=== PATIENT | female | born 1985 | race Caucasian/White ===

== ENCOUNTER 2018-12-02 13:34 | Emergency (ER) | payer OTHER ==
[~2018-12-02] VITALS: Ht 160 cm; Wt 76.8 kg
[~2018-12-02 13:34] MED LIST: IBUP100S44 PO; MAPA500T17 PO
[2018-12-02] MEDS ORDERED: ROBI30SU PO (13:39)
[2018-12-02] MEDS ORDERED: ONDA8TAB7 PO (13:39)
[2018-12-02] MEDS ORDERED: ACETAMINOPHEN 325 MG TAB PO ONE (14:00)
[2018-12-02] MEDS ORDERED: VALT1TAB PO (14:14)
[2018-12-02] MEDS ORDERED: valACYclovir HCL 500 MG TAB PO ONE (14:15)
[2018-12-02 14:42] LABS: INFLUENZA A AMPLIFICATION POSITIVE (NEGATIVE); INFLUENZA B AMPLIFICATION NEGATIVE (NEGATIVE)
[2018-12-02] MEDS ORDERED: OSEL75CA PO (14:52)
[2018-12-02 14:56] VITALS: BP 106/65
[2018-12-02] MEDS ORDERED: OSELTAMIVIR PHOSPHATE 75 MG CAP (TAMIFLU) PO ONE (15:00)
== END 2018-12-02 15:08 | disposition home or self-care (01) ==
LOC: M ED 13:34
DX: O98.512 Other viral diseases complicating pregnancy, second trimester (principal); Z3A.16 16 weeks gestation of pregnancy; Z79.899 Other long term (current) drug therapy; Z88.5 Allergy status to narcotic agent; Z88.4 Allergy status to anesthetic agent

== ENCOUNTER 2019-04-14 18:29 | Outpatient (CLI) | payer OTHER ==
[~2019-04-14] VITALS: Ht 160 cm; Wt 98.3 kg
[~2019-04-14 18:29] MED LIST changes: +ONDA8TAB7 PO; +OSEL75CA PO; +ROBI30SU PO; +VALT1TAB PO
[2019-04-14 18:58] LABS: HEMATOCRIT 34.3 % (36.0-47.0); HEMOGLOBIN 11.3 g/dl (12.0-15.5); MEAN CORPUSCULAR HEMOGLOBIN 30.6 pg (27.0-33.0); MEAN CORPUSCULAR HGB CONC 32.9 g/dl (32.0-36.5); PLATELET COUNT, AUTOMATED 228 10^3/uL (150-450); RED BLOOD COUNT 3.69 10^6/uL (4.00-5.40); WHITE BLOOD COUNT 13.8 10^3/uL (4.0-10.0)
[2019-04-14 19:01] VITALS: BP 125/72
[2019-04-14 19:17] LABS: APPEARANCE, URINE CLEAR (CLEAR); BACTERIA, URINE AUTO 1+ (NEGATIVE); BILIRUBIN, URINE AUTO NEGATIVE (NEGATIVE); BLOOD, URINE BLOOD NEGATIVE (NEGATIVE); COLOR, URINE STRAW (YELLOW); GLUCOSE, URINE (UA) AUTO NEGATIVE (NEGATIVE); KETONE, URINE AUTO NEGATIVE (NEGATIVE); LEUKOCYTE ESTERASE, URINE AUTO TRACE (NEGATIVE); MUCUS, URINE SMALL (NEGATIVE); NITRITE, URINE AUTO NEGATIVE (NEGATIVE); PROTEIN, URINE AUTO NEGATIVE (NEGATIVE); RBC, URINE AUTO 2 /HPF (0-3); SPECIFIC GRAVITY URINE AUTO 1.003 (1.002-1.035); SQUAMOUS EPITHELIAL CELL UR AU 1 /HPF (0-6); UROBILINOGEN, URINE AUTO 0.2 mg/dL (0.0-2.0); WBC, URINE AUTO 1 /HPF (0-3)
--- NOTE | 2019-04-14 19:19 | IPNPDOC ---
Text Note Date of Service The patient was seen on 04/14/19. NOTE 34yo at 35w2d by LMP c/w first trimester US presents c/o leg and arm swe lling. She had pre-eclampsia with her first and is concerned she may be developing it again. She has had leg edema for several weeks, but today is the first time she has felt arm swelling. She was more active than usual today, out with the family and doing a lot of shopping. Has had on and off headaches for the last several weeks as well as occasional dizziness, she has neither today. Denies RUQ pain, vision changes, n/v, urinary/bowel symptom, denies ctx, vb, lof. +FM PMH/PSH: non-contrib OBHx: G1- at term, IOL for pre-e. G2- at term, no pre-e Meds: PNV, reglan ALL: oxycodone Vitals: reviewed, wnl. Gen WDWN, NAD. Resting comfortably in bed, denies pain Abd gravid, non-tender Ext no upper ext edema, +2 edema to knee bilaterally TAUS: SIUP, +FCA, +FM, MVP 6.8cm, posterior placenta, cephalic A/P: Likely normal gestational edema. Normotensive, CBC and CMP normal, and no symptoms of pre-e. UA with neg protein, however Pr:Cr=1. She does have baseline proteinuria with 24 hour urine protein 166mg. Will order repeat 24 hour urine for her to obtain and will call with results. Safe for discharge today. -24 hour urine protein -F/u at [facility] appointment on Tuesday -Strict return precautions discussed. She will present to L&D for any symptoms of pre-e. MD AREN Keating Fishbone, I+O [facility]SS[facility]ring I+O Laboratory Tests 04/14/19 18:49 Red Blood Count 3.69 L, Mean Corpuscular Volume 93.0, Mean Corpuscular Hemoglobin 30.6, Mean Corpuscular Hemoglobin Concent 32.9, Red Cell Distribution Width 14.5 Vital Signs Date Time Temp Pulse Resp B/P (MAP) Pulse Ox O2 Delivery O2 Flow Rate FiO2 04/14/19 19:01 99.3 98 18 125/72 (89) JEEVAN KEATING MD Apr 14, 2019 19:19
[2019-04-14 19:28] LABS: ALT/SGPT 15 U/L (12-78); BILIRUBIN,TOTAL 0.1 MG/DL (0.2-1.0); CREATININE FOR GFR 0.64 MG/DL (0.55-1.30); GLOMERULAR FILTRATION RATE > 60.0 (>60); LDH LACTATE DEHYDROGENASE 179 U/L (84-246); URIC ACID 2.8 MG/DL (2.6-6.0)
[2019-04-14 19:35] LABS: CREATININE,RANDOM URINE 13.4 MG/DL
== END 2019-04-14 19:45 | disposition home or self-care (01) ==
LOC: M LDO 18:29
PROVIDERS: ATTEND General Practice
DX: O26.893 Other specified pregnancy related conditions, third trimester (principal); R60.9 Edema, unspecified; Z3A.35 35 weeks gestation of pregnancy
CPT/HCPCS: 36415; 59025; 76815; 81001; 82247; 82565; 82570; 83615; 84156; 84450; 84460; 84550; 85027; G0378; G0463

== ENCOUNTER 2019-04-20 14:08 | Outpatient (CLI) | payer OTHER ==
[~2019-04-20] VITALS: Ht 160 cm; Wt 98.8 kg
[2019-04-20 15:39] LABS: HEMATOCRIT 30.1 % (36.0-47.0); MEAN CORPUSCULAR HGB CONC 33.2 g/dl (32.0-36.5); MEAN CORPUSCULAR VOLUME 90.4 fl (80.0-96.0); PLATELET COUNT, AUTOMATED 200 10^3/uL (150-450); RED BLOOD COUNT 3.33 10^6/uL (4.00-5.40); WHITE BLOOD COUNT 10.9 10^3/uL (4.0-10.0)
[2019-04-20 16:09] LABS: CREATININE,RANDOM URINE 95.1 MG/DL; TOTAL PROTEIN,RANDOM URINE 30.3 MG/DL (0.0-12.0)
[2019-04-20 16:11] LABS: ALT/SGPT 12 U/L (12-78); BILIRUBIN,TOTAL 0.2 MG/DL (0.2-1.0); CREATININE FOR GFR 0.62 MG/DL (0.55-1.30); GLOMERULAR FILTRATION RATE > 60.0 (>60); LDH LACTATE DEHYDROGENASE 176 U/L (84-246)
--- NOTE | 2019-04-20 17:46 | IPNPDOC ---
Obstetrical Progress Note Date of Service Apr 20, 2019 Subjective 34yo at 36+1wk presents to LND after she was contacted by clinic regarding 24hr protein lab result and told to come in for evaluation for Pre- Eclampsia. Pt reports +FM, denies LOF/VB. She states she feels intermittent contractions, mostly BH. She has c/o dizziness and right arm swelling with numbness. She denies feeling dizzy during my assessment. She denies LUCIO at this time and states, although she still has them, they are controlled. She denies visual changes. Pt also c/o loose/soft stools x3 days. She denies being febrile, denies stomach pain, nausea/vomiting. No other person in the home has been sick. Pt has previously been diagnosed with anemia; she denies taking iron supplements as previously recommended. Objective Vital Signs Date Time Temp Pulse Resp B/P (MAP) Pulse Ox O2 Delivery O2 Flow Rate FiO2 04/20/19 16:08 97.7 18 Room Air Assessment and Plan Additional Comments O: VSS, BP normotensive Pedal/BLE edema present, but no change from previous exam DTRs 2+ and WNL No visual edema of right arm; symmetrical with left arm Hydrometer Calibrator strength WNL FHR 130s, moderate variablity, + accels, no decels CTX present, mild by palpation, pt denies most of them 24hr urine from 90FLH10: 583.1 (baseline in 1st trimester: 166) PC ratio from 35EUC86: 1.04; today's result: 0.31 AST/ALT/Creatinine all WNL H/H: 10.0/30.1 Platelets: 200 A: 34yo at 36+1wks normotensive most Pre-E labs WNL; elevated PC ratio Anemic, possibly symptomatic with dizziness; no syncope Category I FHT P: Growth US scheduled for Tuesday, f/u [facility]B Tuesday, APFT starts Tuesday, start iron supplements reviewed strict Pre-E precautions return to LND if symptoms worsen CHARLES ESTEVEZ CNM Apr 20, 2019 17:46
== END 2019-04-20 16:35 | disposition home or self-care (01) ==
LOC: M LDO 14:08
PROVIDERS: ATTEND Registered Nurse Maternal Newborn
DX: Z36.89 Encounter for other specified antenatal screening (principal); O99.013 Anemia complicating pregnancy, third trimester; O99.89 Other specified diseases and conditions complicating pregnancy, childbirth and the puerperium; R60.9 Edema, unspecified; Z3A.36 36 weeks gestation of pregnancy
CPT/HCPCS: 36415; 59025; 82247; 82565; 82570; 83615; 84156; 84450; 84460; 84550; 85027; G0378; G0463

== ENCOUNTER 2019-04-24 21:53 | Outpatient (CLI) | payer OTHER ==
[~2019-04-24] VITALS: Ht 160 cm; Wt 101.6 kg
[2019-04-24 22:19] VITALS: BP 86/51
[2019-04-24] MEDS ORDERED: MULTCAP PO (22:26)
[2019-04-24] MEDS ORDERED: IRON65TA2 PO (22:26)
[2019-04-24] MEDS ORDERED: MAGN400C PO (22:26)
[2019-04-24 22:36] VITALS: BP 101/55
== END 2019-04-25 00:20 | disposition home or self-care (01) ==
LOC: M LDO 21:53
PROVIDERS: ATTEND Obstetrics & Gynecology
DX: O26.893 Other specified pregnancy related conditions, third trimester (principal); M54.5 Low back pain; O36.8130 Decreased fetal movements, third trimester, not applicable or unspecified; Z3A.36 36 weeks gestation of pregnancy
CPT/HCPCS: 59025; G0378; G0463

== ENCOUNTER 2019-05-11 16:49 | Inpatient (IN) | payer OTHER ==
[~2019-05-11] VITALS: Ht 160 cm; Wt 103.7 kg
[~2019-05-11 16:49] MED LIST changes: +IRON65TA2 PO; +MAGN400C PO; +MULTCAP PO
[2019-05-11 17:15] VITALS: BP 128/77
[2019-05-11] MEDS ORDERED: PENICILLIN G POTASSIUM IV 5 MU in D5W MINI-BAG PLUS 100 ML IV STA (18:17)
[2019-05-11 18:23] LABS: HEMATOCRIT 34.1 % (36.0-47.0); HEMOGLOBIN 11.1 g/dl (12.0-15.5); MEAN CORPUSCULAR HEMOGLOBIN 30.8 pg (27.0-33.0); MEAN CORPUSCULAR HGB CONC 32.6 g/dl (32.0-36.5); MEAN CORPUSCULAR VOLUME 94.7 fl (80.0-96.0); PLATELET COUNT, AUTOMATED 180 10^3/uL (150-450); WHITE BLOOD COUNT 9.2 10^3/uL (4.0-10.0)
[2019-05-11] MEDS ORDERED: miSOPROStol 50 MCG 1/2 TAB (S0191) PO ONE (18:30)
[2019-05-11 18:47] VITALS: BP 145/63
[2019-05-11 18:48] LABS: CREATININE,RANDOM URINE 61.3 MG/DL; TOTAL PROTEIN,RANDOM URINE 32.2 MG/DL (0.0-12.0)
[2019-05-11 18:52] LABS: ALBUMIN 2.2 GM/DL (3.2-5.2); ALT/SGPT 12 U/L (12-78); BILIRUBIN,TOTAL 0.3 MG/DL (0.2-1.0); BLOOD UREA NITROGEN 7 MG/DL (7-18); CALCIUM LEVEL 8.7 MG/DL (8.5-10.1); CARBON DIOXIDE LEVEL 25 MEQ/L (21-32); CHLORIDE LEVEL 107 MEQ/L (98-107); CREATININE FOR GFR 0.55 MG/DL (0.55-1.30); GLOMERULAR FILTRATION RATE > 60.0 (>60); GLUCOSE, FASTING 83 MG/DL (70-100); SODIUM LEVEL 141 MEQ/L (136-145); TOTAL PROTEIN 5.9 GM/DL (6.4-8.2)
[2019-05-11 19:45] VITALS: BP 108/68
[2019-05-11 21:04] VITALS: BP 123/62
[2019-05-11] MEDS ORDERED: zolPIDEM TARTRATE 5 MG TAB PO ONE (23:30)
[2019-05-11] MEDS: PENICILLIN G POTASSIUM IV 2.5 MU in APPROPRIATE DILUENT 1 EA IV SCH (23:40)
[2019-05-12] VITALS (48 sets, daily range): BP systolic 94–189; BP diastolic 53–143
[2019-05-12] MEDS: PENICILLIN G POTASSIUM IV 2.5 MU in APPROPRIATE DILUENT 1 EA IV SCH ×6 (04:10→23:55)
[2019-05-12] MEDS ORDERED: OXYTOCIN DRIP 30 UNITS in APPROPRIATE DILUENT 1 EA IV SCH (06:15)
[2019-05-12] MEDS: LR 1,000 ML IV SCH ×2 (07:52→23:56)
--- NOTE | 2019-05-12 09:14 | IPN ---
DATE: 05/11/2019 This lady is a 34 old 3, para 2 at 39 and 1 weeks of gestation who was admitted for induction of labor because of proteinuria. She had 1 lot of misoprostol and she was started on the penicillin prophylactically because she was GBS positive. Four hours later she was having what appeared to be tetanic type contractions and on examination of the cervix. She was 1-2 cm posterior and thick membranes were intact. Therefore we elected to not and in the Pitocin. We are anticipating giving her something to sleep but she is not able to cope with these contractions and reassess her and 3-4 hours time. She is antibiotic complete at the present time. Her strip is a category one strip at the present time. Her vital signs are 145/63, respirations are 18, pulse 91, temperature 99.4. Presently there are no issues. She is getting some relaxation in between these short contractions. Baby is tolerating them well. We will reassess as mentioned in four hours, safe to proceed.
--- NOTE | 2019-05-12 09:55 | IPNPDOC ---
Text Note Date of Service The patient was seen on 05/12/19. NOTE I accepted care of this patient on 12May2019 at 0830AM. OB Considerations: - New onset proteinuria - 583.1mg ([id number]) - H/O Pre-Eclampsia - GBS positive - No PCN allergy - Overweight - Anemia - current H/H - H/O Macrosomia - proven to 9lbs 9oz Alanna is a 34yo at 39+2wks by LMP c/w 8 wk US (MANUEL [id number]) admitted for IOL for new onset Proteinuria in the setting of normal blood pressures. She reports feeling well today. course complicated by the above. Medical and Surgical histories reviewed. She denies headaches, vision changes, RUQ pain. She denies painful contractions. Reports movement. labs notable for O positive/antibody negative, HIV/Hep B/RPR negative, Rubella and Varicella Immune, Pap/HPV WNL, Urine Culture mixed ozzie, GC Neg, Initial HCT 38.6, PLT 304, GTT WNL, Tdap received, GBS pos. Labor Course: Admit [id number] 1800 DCE 50/-3 [id number] 1846 Cytotec [id number] 1928 PCN start [id number] 0712 /-3 [id number] 0915 Pitocin Start PE: VS reviewed, normotensive, afebrile, nontachycardic GEN: WNWD, NAD ABD: Soft, Gravid, NT EXT: No Edema Vertex by Chano's FHT: 130bmp, mod variability, + accelerations, - decelerations [place]: irregular EFW: 4000gm A/P: SIUP at 39+2wks IOL for new onset Proteinuria, Cat I FHT. No s/sx of Pre Eclampsia. - VS per protocol - Continue IVF - Continue Pitocin and titrate per protocol - Continue PCN for GBS positive - Recheck 4 to 6 hrs after regular contractions, consider AROM at next check Natasha Moreau, DO VS,Fishbone, I+O VS, Fishbone, I+O Laboratory Tests 05/11/19 18:10 Red Blood Count 3.60 L, Mean Corpuscular Volume 94.7, Mean Corpuscular Hemoglobin 30.8, Mean Corpuscular Hemoglobin Concent 32.6, Red Cell Distribution Width 16.2 H, Calcium Level 8.7, Aspartate Amino Transf (AST/SGOT) 19, Alanine Aminotransferase (ALT/SGPT) 12, Alkaline Phosphatase 137 H, Total Bilirubin 0.3, Total Protein 5.9 L, Albumin 2.2 L Vital Signs Date Time Temp Pulse Resp B/P (MAP) Pulse Ox O2 Delivery O2 Flow Rate FiO2 05/12/19 07:18 97.4 95 18 110/66 (81) I&O- Last 24 Hours up to 6 AM 05/12/19 05:59 Intake Total 2880 ml Balance 2880 ml NATASHA MOREAU DO May 12, 2019 09:55
[2019-05-12] MEDS ORDERED: SLF 3 ML SYR IV PRN (11:45)
--- NOTE | 2019-05-12 14:09 | IPN ---
DATE: 05/12/2019 She is a 34-year-old, 3, para 2 who was admitted for induction of labor at 39 and 1 weeks' of gestation because of history of proteinuria. She had one lot of misoprostol. She had some tympanic type contractions with that and we elected to wait until it wore off, hydrated her, change position and elected to augment her with Pitocin. Overnight she slept well. She got intermittent contractions, they spaced out the regular 1-4 minutes with moderate intensity. She did sleep through them. On examination today she still 1 cm posterior high about 50% effaced, thinning out with these irritability contractions from the misoprostol. Our plan of management is to have her shower, eat and then we will start her on Pitocin and monitor contractions based on the Pitocin dosage. The patient expressed understanding of the plan of care. She has had a previous induction of labor for pre PE and she had induction of labor for post dates at 42 weeks of gestation. Both ended with a vaginal delivery and she has tested her pelvis to 9 pounds 9 ounces without shoulder dystocia. She is a Group B streptococcus (GBS) positive and she has received her second dose of antibiotic therapy.
--- NOTE | 2019-05-12 15:47 | IPNPDOC ---
Text Note Date of Service The patient was seen on 05/12/19. NOTE I accepted care of this patient on 12May2019 at 0830AM. OB Considerations: - New onset proteinuria - 583.1mg ([id number]) - H/O Pre-Eclampsia - GBS positive - No PCN allergy - Overweight - Anemia - current H/H - H/O Macrosomia - proven to 9lbs 9oz Alanna is a 34yo at 39+2wks by LMP c/w 8 wk US (MANUEL [id number]) admitted for IOL for new onset Proteinuria in the setting of normal blood pressures. She reports feeling well today. She reports feeling the contractions, but are not painful. VS: reviewed, normotensive, afebrile, nontachycardic GEN: WNWD, NAD ABD: Soft, Gravid, NT EXT: Trace Edema DCE: 3/50/-3, soft, anterior FHT: 120bpm, mod variability, + accelerations, - decelerations [place]: 2-5/min on 16mUnits of Pitocin A/P: IOL for new onset Proteinuria, no signs or symptoms of pre eclampsia. Cat I FHT. - Continue VS per protocol - Continue to monitor - Continue PCN for GBS positive - Continue Pitocin and Titrate per protocol - Recheck in 4 - 6 hrs or sooner if indicated, consider AROM at next check if station allows Natasha Moreau, DO VS,Fishbone, I+O VS, Fishbone, I+O Laboratory Tests 05/11/19 18:10 Red Blood Count 3.60 L, Mean Corpuscular Volume 94.7, Mean Corpuscular Hemoglobin 30.8, Mean Corpuscular Hemoglobin Concent 32.6, Red Cell Distribution Width 16.2 H, Calcium Level 8.7, Aspartate Amino Transf (AST/SGOT) 19, Alanine Aminotransferase (ALT/SGPT) 12, Alkaline Phosphatase 137 H, Total Bilirubin 0.3, Total Protein 5.9 L, Albumin 2.2 L Vital Signs Date Time Temp Pulse Resp B/P (MAP) Pulse Ox O2 Delivery O2 Flow Rate FiO2 05/12/19 07:18 97.4 95 18 110/66 (81) I&O- Last 24 Hours up to 6 AM 05/12/19 06:00 Intake Total 2880 ml Balance 2880 ml NATASHA MOREAU DO May 12, 2019 15:47
[2019-05-12] MEDS ORDERED: FENTANYL 2MCG/ML ROPIVACAINE 0.2% IN 0.9% NACL 100ML IVBAG As Ordered ONE (20:43)
[2019-05-12] MEDS ORDERED: LR 500 ML IV ONE (20:45)
[2019-05-12] MEDS ORDERED: FENTANYL/ROPIVACAINE/NACL BAG 100 ML EPIDURAL SCH (22:00)
[2019-05-12] MEDS ORDERED: EPIDURAL/PCA KEYS XX PRN (22:00)
[2019-05-12] MEDS ORDERED: REFRIGERATOR IV KEYS XX PRN (22:00)
[2019-05-12] MEDS ORDERED: EPIDURAL COMMENT XX SCH (22:00)
[2019-05-12] MEDS ORDERED: LACTATED RINGER'S 1000 ML IV PRN (22:00)
[2019-05-12] MEDS ORDERED: diphenhydrAMINE INJ 50MG/ML VIAL (J1200) IV PRN (22:00)
[2019-05-12] MEDS ORDERED: ONDANSETRON 4MG/2ML VIAL (J2405) IV PRN (22:00)
[2019-05-12] MEDS ORDERED: ePHEDrine SULFATE 25 MG/5 ML(5MG/ML) SYRINGE IV PRN (22:00)
[2019-05-12] MEDS ORDERED: NALOXONE INJ 0.4 MG/1 ML VIAL (J2310) IV PRN (22:00)
[2019-05-13] VITALS (9 sets, daily range): BP systolic 99–123; BP diastolic 56–70
--- NOTE | 2019-05-13 01:07 | DNPDOC ---
[facility] Delivery Note Delivery Note DATE OF DELIVERY: [13May2019] PREDELIVERY DIAGNOSIS: [39]-[3]/7 weeks' gestation and labor. POST DELIVERY DIAGNOSIS: Delivered. PROCEDURE: [Spontaneous vaginal delivery]. SALES ENABLEMENT SPECIALIST: Dr. Purvis] ANESTHESIA: [Epidural]. ESTIMATED BLOOD LOSS: [300] mL. FINDINGS: [3970] grams [male] , Score [8]/[9], no nuchal. DELIVERY SUMMARY: Patient is a [34]-year-old [3] now para [3]-[0]-[0]-[3] who was admitted to labor and delivery for induction of labor for new onset proteinuria. delivered OA, restituted SHY. No nuchal. Right anterior shoulder delivered with gentle downward traction and the rest of the body delivered spontaneously and placed on maternal abdomen. Infant cried spontaneously. The cord was doubly clamped, and cut by father of . Cord blood was collected per protocol. The placenta was delivered, scar, 3vc, intact, with gentle downward traction. Systematic inspection of the perineum was performed and a midline 1st degree vaginal laceration. Good epidural anesthesia was noted. 3-0 Vicryl and repaired in usual fashion. Good reapproximation was noted. Mother and baby stable and bonding when physician left the room. EBL 300cc Lap and Needle counts were correct x2. JYOTI MOREAU DO May 13, 2019 01:07
[2019-05-13] MEDS ORDERED: ACETAMINOPHEN TAB 650MG DOSE (2X325MG) PO PRN (01:15)
[2019-05-13] MEDS ORDERED: IBUPROFEN 600 MG TAB PO PRN (01:15)
[2019-05-13] MEDS ORDERED: ACETAMINOPHEN 500 MG TAB PO PRN (01:15)
[2019-05-13] MEDS ORDERED: METHYLERGONOVINE MALEATE 0.2 MG TAB PO PRN (01:15)
[2019-05-13] MEDS ORDERED: IBUPROFEN 800 MG TAB PO PRN (01:15)
[2019-05-13] MEDS ORDERED: DIBUCAINE 1% OINTMENT 30GM TOP PRN (01:15)
[2019-05-13] MEDS ORDERED: DOCUSATE SODIUM 100 MG CAP PO PRN (01:15)
[2019-05-13] MEDS ORDERED: MEASLES,MUMPS,RUBELLA VACCINE INJ (MMR-II) (90707) SC SCH (01:15)
[2019-05-13] MEDS ORDERED: RHOGAM 300 MCG (1500 IU) INJ (J2790) IM SCH (01:15)
[2019-05-13] MEDS: PRENATAL VITAMINS CHEWABLE TABLET PO SCH (08:32)
[2019-05-14 05:43] VITALS: BP 132/69
--- NOTE | 2019-05-14 06:21 | IPNPDOC ---
Progress Note Date of Service: May 14, 2019 Day#: 1 Progress Note SUBJECT: [Alanna] is a [34]-year-old [3] now Para [2]-[0]-[0]-[2] stat post uncomplicated spontaneous vaginal delivery at [39]-[2]/7 weeks' on [[id number]] of a [3970] grams with 1st degree midline vaginal laceration and repair, doing well day # [1]. She has been ambulating, voiding spontaneously without issue and tolerating regular diet. Breast feeding without issue. Reports lochia is [like a normal period]. Patient is ambulating well. [Reports some cramping with . Denies any pain. Voiding and stooling without difficulty]. OBJECTIVE: VITAL SIGNS: Within normal limits, afebrile. Alert and oriented times three. Breath sounds clear to auscultation. Heart rate: Regular rate and rhythm, no murmurs, rubs or gallops. Abdomen: Fundus firm at U-2. Soft, NTTP. [Minimal] lochia. ASSESSMENT: [Alanna] is a [34]-year-old [3] now Para [2]-[0]-[0]-[2] status post uncomplicated spontaneous vaginal delivery at [39]-[2]/7 weeks' on [[id number]] of a [3970] grams with 1st degree midline vaginal laceration and repair, doing well day # [1]. Vitals within normal limits, afebrile, hemodynamically stable with no evidence of infection. PLAN: 1. Discharge to home today. 2. Tylenol and Motrin for pain. 3. Encourage breast feeding and ambulation. 4. [Minipill] for contraception for now, desires BTL. 5. Routine PP visit in 6 weeks in clinic. 6. Discussed return precautions at length. VS, I&O, 24H, Fishbone Vital Signs/I&O Vital Signs Date Time Temp Pulse Resp B/P (MAP) Pulse Ox O2 Delivery O2 Flow Rate FiO2 05/14/19 05:43 97.4 90 18 132/69 (90) 05/13/19 18:00 97 JYOTI MOREAU DO May 14, 2019 06:20
[2019-05-14] MEDS ORDERED: MIRA3350 PO (06:59)
[2019-05-14] MEDS ORDERED: IBUP80TA PO (06:59)
[2019-05-14] MEDS ORDERED: APAP325T4 PO (06:59)
[2019-05-14] MEDS: PRENATAL VITAMINS CHEWABLE TABLET PO SCH (08:09)
== END 2019-05-14 14:20 | disposition home or self-care (01) | DRG 807 ==
LOC: M LDI 16:49 → M OBS 05-13 03:39 → M PED 05-13 20:00
PROVIDERS: ADMIT Advanced Practice Midwife; ATTEND Obstetrics & Gynecology
PROC: 3E0P7GC Introduction of Other Therapeutic Substance into Female Reproductive, Via Natural or Artificial Opening (ICD-10-PCS; 2019-05-11)
PROC: 10907ZC Drainage of Amniotic Fluid, Therapeutic from Products of Conception, Via Natural or Artificial Opening (ICD-10-PCS; 2019-05-12)
PROC: 10E0XZZ Delivery of Products of Conception, External Approach (ICD-10-PCS; principal; 2019-05-13)
PROC: 0HQ9XZZ Repair Perineum Skin, External Approach (ICD-10-PCS; 2019-05-13)
DX: O12.14 Gestational proteinuria, complicating childbirth (principal); Z37.0 Single live birth; Z3A.39 39 weeks gestation of pregnancy; O99.824 Streptococcus B carrier state complicating childbirth; O99.02 Anemia complicating childbirth; D64.9 Anemia, unspecified; O70.0 First degree perineal laceration during delivery

== ENCOUNTER 2019-08-01 06:07 | Day surgery (SDC) | payer OTHER ==
[~2019-08-01] VITALS: Ht 160 cm; Wt 88.5 kg
[~2019-08-01 06:07] MED LIST changes: +APAP325T4 PO; +IBUP80TA PO; +MIRA3350 PO
[2019-08-01 06:37] LABS: HEMATOCRIT 43.3 % (36.0-47.0); MEAN CORPUSCULAR HEMOGLOBIN 30.6 pg (27.0-33.0); MEAN CORPUSCULAR HGB CONC 32.3 g/dl (32.0-36.5); MEAN CORPUSCULAR VOLUME 94.7 fl (80.0-96.0); PLATELET COUNT, AUTOMATED 273 10^3/uL (150-450); RED BLOOD COUNT 4.57 10^6/uL (4.00-5.40)
[2019-08-01] MEDS ORDERED: DOXYCYCLINE HYCLATE 100 MG TAB PO ONE ×2 (07:00→08:45)
[2019-08-01] MEDS ORDERED: LR 1,000 ML IV ONE (07:00)
[2019-08-01] MEDS ORDERED: PROPOFOL 200 MG/20 ML VIAL As Ordered ONE ×3 (07:14→07:55)
[2019-08-01] MEDS ORDERED: MIDAZOLAM INJ 2 MG/2 ML VIAL (J2250) As Ordered ONE (07:14)
[2019-08-01] MEDS ORDERED: ONDANSETRON 4MG/2ML VIAL (J2405) As Ordered ONE (07:14)
[2019-08-01] MEDS ORDERED: fentaNYL 250 MCG/5 ML INJECTION (J3010) As Ordered ONE (07:14)
[2019-08-01] MEDS ORDERED: dexameTHASONE 4 MG/ML 1ML VIAL (J1100) As Ordered ONE (07:14)
[2019-08-01] MEDS ORDERED: KETOROLAC 60 MG/2 ML VIAL (J1885) As Ordered ONE ×2 (07:14→08:11)
[2019-08-01] MEDS ORDERED: BUPIVACAINE/EPIN 0.25% 30 ML VIAL As Ordered ONE (07:17)
[2019-08-01] MEDS ORDERED: ACETAMINOPHEN 1000MG 100ML IV BTL (OFIRMEV) (J0131 PER 10MG) As Ordered ONE (07:24)
[2019-08-01] MEDS ORDERED: ePHEDrine SULFATE 25 MG/5 ML(5MG/ML) SYRINGE As Ordered ONE (07:53)
[2019-08-01 09:00] VITALS: BP 112/73
--- NOTE | 2019-08-01 09:45 | POST-OPPD ---
Postoperative Procedure Note Date Of Procedure: Aug 01, 2019 PREOPERATIVE DIAGNOSIS: abnormal uterine bleeding POSTOPERATIVE DIAGNOSIS: same as above FINDINGS: Small amount of intrauterine tissue PROCEDURE: suction dilation and curettage SURGEON: Jean Galarza DO ELEVATOR CONSTRUCTOR: NONE ANESTHESIA: MAC SPECIMENS: intrauterine contents ESTIMATED BLOOD LOSS: 10cc REPLACED: 500cc LR DRAINS: 30cc COMPLICATIONS: none POSTOPERATIVE CONDITION: stable Detailed operative note: Patient is a 34 yo S/P 11 weeks with persistent vaginal bleeding. Pelvic US concerning for possible retained products. Trial of medication with cytotec was not successful. Description of procedure: The risks, benefits, indications and alternatives of the procedure were reviewed with the patient and informed consent was obtained. The patient was taken to the operating room with IV running. Patient under conscious sedation. Patient placed in lithotomy position. Patient vagina and perineum prepped and draped in the usual sterile fashion. Speculum placed vaginally and cervix visualized. The anterior of cervix grasp with single tooth tenaculum. Bilateral uterosacral injected with Marcaine 0.25% with epi for local block. Cervix dilated to 7mm. Sharp curette used and produced small amount of tissue. Curved suction curette (7mm) used with multiple passes until no additional tissue is retrieved. Medium sharp curette used until a gritty texture is felt on all four quadrants. Suction curette reintroduced to remove remainder of tissue. All instruments removed from the vagina. Sponge and instruments count correct x 2. Patient was taken out of OR in stable condition. JEAN GALARZA DO Aug 01, 2019 09:40
== END 2019-08-01 09:16 | disposition home or self-care (01) ==
LOC: M SDC 06:07
PROVIDERS: ATTEND Obstetrics & Gynecology
DX: O02.1 Missed abortion (principal); D64.9 Anemia, unspecified; Z88.5 Allergy status to narcotic agent; F41.9 Anxiety disorder, unspecified
CPT/HCPCS: 36415; 59820; 85027; 86850; 86900; 86901; 88305; J0131; J1885; J2250; J2405

== ENCOUNTER → 2019-10-07 | Outpatient (REF) | payer OTHER ==
[~2019-10-07] MED LIST changes: +ONDA8TAB10 PO; -ONDA8TAB7 PO
== END ==
LOC: M SFHCLERA 14:29
PROVIDERS: ATTEND Physician Assistant
DX: J02.9 Acute pharyngitis, unspecified (principal)

== ENCOUNTER → 2019-10-07 | Outpatient (CLI) | payer OTHER ==
--- NOTE | 2019-10-07 11:49 | REP ---
PA and lateral chest: There are no comparisons. The lung cline are clear. The cardiac size is normal. The eagle, mediastinum, and skeletal structures are unremarkable. Impression: Negative PA and lateral chest. Electronically Signed by El Lorenz MD 10/07/2019 11:41 A
== END ==
LOC: M LRY 11:25
PROVIDERS: ATTEND Physician Assistant
DX: R05 Cough (principal)
CPT/HCPCS: 71046; 87880; G0463

== ENCOUNTER → 2022-01-18 | Outpatient (REF) | payer OTHER ==
[~2022-01-18] MED LIST changes: +ONDA-84 PO; -ONDA8TAB10 PO
[2022-01-18 17:17] LABS: RSV AMPLIFICATION NEGATIVE (NEGATIVE)
== END ==
LOC: M LAB REF 15:34
PROVIDERS: ATTEND Physician Assistant
DX: R68.83 Chills (without fever) (principal)

== ENCOUNTER 2025-04-21 13:07 | Emergency (ER) | payer OTHER ==
[~2025-04-21] VITALS: Ht 167.6 cm; Wt 98.9 kg
[2025-04-21 14:06] LABS: BASO # 0.1 10^3/uL (0.0-0.2); BASO % 1.4 % (0.0-1.0); EOS # 0.2 10^3/uL (0.0-0.5); EOS % 2.2 % (0.0-3.0); LYMPH # 2.6 10^3/uL (1.5-5.0); LYMPH % 28.4 % (24.0-44.0); MONO # 0.7 10^3/uL (0.0-0.8); MONO % 7.8 % (2.0-8.0); NEUTROPHILS # 5.6 10^3/uL (1.5-8.5); NEUTROPHILS % 59.8 % (36.0-66.0); PLATELET COUNT, AUTOMATED 352 10^3/uL (150-450)
[2025-04-21 14:10] LABS: KETONE, URINE AUTO RFX NEGATIVE (NEGATIVE); LEUKOCYTE ESTERASE UR AUTO RFX NEGATIVE (NEGATIVE); NITRITE, URINE AUTO RFX NEGATIVE (NEGATIVE); RBC, URINE AUTO RFX TNTC /HPF (0-3); SQUAM EPITHELIAL CELL UR AURFX 7 /HPF (0-6)
[2025-04-21 14:11] LABS: WBC, URINE AUTO RFX 11 /HPF (0-3)
[2025-04-21 14:39] LABS: CALCIUM LEVEL 8.2 MG/DL (8.5-10.1); CARBON DIOXIDE LEVEL 28 MMOL/L (20-31); CHLORIDE LEVEL 104 MMOL/L (98-107); CREATININE FOR GFR 0.80 MG/DL (0.55-1.30); GLOMERULAR FILTRATION RATE > 90.0 (>60); POTASSIUM SERUM 4.1 MMOL/L (3.5-5.1); SODIUM LEVEL 141 MMOL/L (136-145)
[2025-04-21] MEDS: NS (Normal Saline) 0.9% 1,000 ML IV ONE (16:48)
[2025-04-21] MEDS ORDERED: ISOVUE-370 76% 100 ML VIAL As Ordered ONE (17:25)
[2025-04-21 18:10] VITALS: TEMP 97.8
[2025-04-21 20:03] VITALS: BP 113/67; O2SAT 100
== END 2025-04-21 20:04 | disposition home or self-care (01) ==
LOC: M ED 13:07
DX: R31.0 Gross hematuria (principal); K44.9 Diaphragmatic hernia without obstruction or gangrene; Z88.5 Allergy status to narcotic agent; Z88.8 Allergy status to other drugs, medicaments and biological substances
CPT/HCPCS: 74178; 80048; 81001; 85025; 87088; 87186; 96360; 96361; 99284; Q9967